=== PATIENT | female | born 1965 | race Caucasian/White ===

== ENCOUNTER → 2024-03-10 06:33 | Outpatient (REF) | payer OTHER, SELFPAY | LOC: HWWDC 06:33 | PROVIDERS: ATTENDING PHYSICIAN Obstetrics & Gynecology; FAMILY PHYSICIAN Nurse Practitioner Adult Health | DX: Z12.31 Encounter for screening mammogram for malignant neoplasm of breast (principal); R06.02 Shortness of breath | CPT/HCPCS: 71046 ==